=== PATIENT | male | born 1965 | race Native Hawaiian/Other Pacific Islander ===

== ENCOUNTER 2017-07-21 17:00 | Emergency (ER) | payer MEDICARE, OTHER ==
[~2017-07-21] VITALS: Ht 172.7 cm; Wt 113.6 kg
[~2017-07-21 17:00] MED LIST: ALBU8HFA IH; ATEN25TA PO; BENZ1TAB70 PO; DSS100 PO; FLUP5 PO; LISI-661 PO; LORA0.5T2 PO; OMEP20 PO; TRAZ-147 PO; VITAD1000 PO
[2017-07-21 19:45] VITALS: BP 132/88
[2017-07-21] MEDS ORDERED: KETOROLAC TROMETHAMINE 60 MG/2 ML VIAL IM ONE (20:00)
[2017-07-21 20:14] LABS: APPEARANCE,URINE CLEAR (CLEAR); BILIRUBIN,URINE NEGATIVE (NEGATIVE); GLUCOSE, URINE (UA) NEGATIVE (NEGATIVE); KETONES,URINE NEGATIVE (NEGATIVE); LEUKOCYTE ESTERASE ,URINE NEGATIVE (NEGATIVE); NITRATE,URINE NEGATIVE (NEGATIVE); PH,URINE 6.5 (5.0-8.0); PROTEIN,URINE NEGATIVE (NEGATIVE); UROBILINOGEN,URINE 0.2 mg/dL (<=1.0)
[2017-07-21 20:26] LABS: BACTERIA,URINE None Seen /HPF (None Seen); OCCULT BLOOD,URINE TRACE (NEGATIVE); RBC,URINE 0-2 /HPF (0-2); WBC,URINE None Seen /HPF (0-5)
== END 2017-07-21 20:54 | disposition home or self-care (01) ==
LOC: EMS 17:02
DX: S39.012A Strain of muscle, fascia and tendon of lower back, initial encounter (principal); F20.9 Schizophrenia, unspecified; I10 Essential (primary) hypertension; J45.909 Unspecified asthma, uncomplicated; F17.210 Nicotine dependence, cigarettes, uncomplicated; Z79.899 Other long term (current) drug therapy; X58.XXXA Exposure to other specified factors, initial encounter; Y93.89 Activity, other specified; Y92.89 Other specified places as the place of occurrence of the external cause; Y99.8 Other external cause status
CPT/HCPCS: 81001; 96372; 99283; 99406; J1885

== ENCOUNTER 2019-01-08 00:50 | Emergency (ER) | payer MEDICARE, OTHER ==
[~2019-01-08 00:50] MED LIST changes: -TRAZ-147 PO; +TRAZ-220 PO
[2019-01-08] MEDS ORDERED: DiphenhydrAMINE HCL 50 MG CAPSULE PO ONE (01:45)
[2019-01-08] MEDS ORDERED: IBUPROFEN 600 MG TABLET PO ONE (01:45)
[2019-01-08 03:28] VITALS: BP 124/82
== END 2019-01-08 03:36 | disposition home or self-care (01) ==
LOC: EMS 00:52
DX: G47.00 Insomnia, unspecified (principal); F20.9 Schizophrenia, unspecified; F17.210 Nicotine dependence, cigarettes, uncomplicated; J45.909 Unspecified asthma, uncomplicated; I10 Essential (primary) hypertension; Z79.899 Other long term (current) drug therapy
CPT/HCPCS: 99406

== ENCOUNTER 2019-06-23 10:14 | Emergency (ER) | payer MEDICARE, OTHER ==
[~2019-06-23] VITALS: Ht 172.7 cm; Wt 105.9 kg
[~2019-06-23 10:14] MED LIST changes: +CHOL100018 PO; +LORA-999 PO; -LORA0.5T2 PO; -TRAZ-220 PO; +TRAZ-257 PO; -VITAD1000 PO
[2019-06-23] MEDS ORDERED: ARIP5TAB8 PO (11:46)
[2019-06-23 14:00] LABS: BASOPHILS % (AUTO) 0.4 % (0.0-2.0); EOSINOPHILS % (AUTO) 3.3 % (1.0-6.0); HEMATOCRIT 47.6 % (41-53); HEMOGLOBIN 16.2 g/dL (13.5-17.5); LYMPHOCYTES # (AUTO) 1.5 K/uL (1.0-4.8); LYMPHOCYTES % (AUTO) 21.3 % (22.0-44.0); MEAN CORPUSCULAR HGB CONC 33.9 G/dL (31.0-37.0); MEAN CORPUSCULAR VOLUME 91 fL (80-100); MONOCYTES # (AUTO) 0.5 K/uL (0.1-1.0); MONOCYTES % (AUTO) 7.5 % (2.0-9.0); NEUTROPHILS # (AUTO) 4.8 K/uL (1.8-7.7); NEUTROPHILS % (AUTO) 67.5 % (40.0-70.0); PLATELET COUNT (AUTO) 208 K/uL (150-450); RED BLOOD CELL COUNT(AUTO) 5.21 MIL/uL (4.50-5.90); RED CELL DISTRIBUTION WIDTH 13.3 % (11.5-14.5)
[2019-06-23 14:11] LABS: ANION GAP 12 mmol/L (8-16); CALCIUM, TOTAL 9.4 mg/dL (8.8-10.5); CARBON DIOXIDE 31 mmol/L (22-29); CHLORIDE 105 mmol/L (98-107); CREATININE 1.03 mg/dL (0.60-1.30); GLOMERULAR FILTR. RATE CALC > 60 mL/min (>60); GLUCOSE,RANDOM 85 mg/dL (70-110); POTASSIUM 4.7 mmol/L (3.5-5.1); SODIUM SERUM 148 mmol/L (136-145); UREA NITROGEN, BLOOD 7 mg/dL (7-18)
[2019-06-23 14:16] LABS: ALANINE AMINOTRANSFERASE 31 U/L (12-78); ALBUMIN 4.1 g/dL (3.4-5.0); ALKALINE PHOSPHATASE 76 U/L (46-116); ASPARTATE AMINOTRANSFERASE 22 U/L (15-37); BILIRUBIN,TOTAL 0.9 mg/dL (0.1-1.0); TOTAL PROTEIN, SERUM 7.7 g/dL (6.4-8.2)
[2019-06-23 14:30] VITALS: BP 139/88
[2019-06-23] MEDS ORDERED: LOPERAMIDE HCL 2 MG CAPSULE PO ONE (14:30)
== END 2019-06-23 14:53 | disposition home or self-care (01) ==
LOC: EMS 10:20
DX: R19.7 Diarrhea, unspecified (principal); I10 Essential (primary) hypertension; J45.909 Unspecified asthma, uncomplicated; F20.9 Schizophrenia, unspecified; F17.210 Nicotine dependence, cigarettes, uncomplicated; Z79.899 Other long term (current) drug therapy

== ENCOUNTER 2020-02-06 13:39 | Emergency (ER) | payer MEDICARE, OTHER ==
[~2020-02-06] VITALS: Ht 172.7 cm; Wt 111.4 kg
[~2020-02-06 13:39] MED LIST changes: +ARIP5TAB8 PO; +ATEN-73 PO; -ATEN25TA PO; -BENZ1TAB70 PO; -FLUP5 PO; -LORA-999 PO; -OMEP20 PO; -TRAZ-257 PO
[2020-02-06 13:41] VITALS: BP 130/82
[2020-02-06] MEDS ORDERED: FLUP1 PO (13:44)
[2020-02-06] MEDS ORDERED: AMIT75 PO (13:44)
[2020-02-06] MEDS ORDERED: CLON-592 PO (13:44)
== END 2020-02-06 14:48 | disposition home or self-care (01) ==
LOC: EMS 13:56
DX: S16.1XXA Strain of muscle, fascia and tendon at neck level, initial encounter (principal); I10 Essential (primary) hypertension; F20.9 Schizophrenia, unspecified; Z87.891 Personal history of nicotine dependence; X58.XXXA Exposure to other specified factors, initial encounter; Y93.89 Activity, other specified; Y92.89 Other specified places as the place of occurrence of the external cause; Y99.8 Other external cause status
CPT/HCPCS: 99283; Z7502